=== PATIENT | male | born 1960 | race Caucasian/White ===

== ENCOUNTER 2024-11-05 08:01 | Inpatient (IN) ==
[2024-11-05 08:59] LABS: Rapid Strep Molecular Negative (Negative)
[2024-11-05] MEDS: Lactated Ringers 1000 ml BAG IV.FLUID IV ONE (09:15)
[2024-11-05 09:28] LABS: Hematocrit 32.1 % (38-53); Hemoglobin 11.2 g/dL (13.2-16.3); Mean Corpuscular Hemoglobin 32.5 pg (27-33); Mean Corpuscular Volume 92.7 fL (80-97); Mean Platelet Volume 7.1 fL (7.5-11.2); Platelet Count 120 10^3/uL (150-450); Red Blood Count 3.46 10^6/uL (4.06-5.63); Red Cell Distribution Width 11.8 % (12-17); White Blood Count 0.1 10^3/uL (3.6-10.2)
[2024-11-05 10:04] LABS: ABS Lymphocytes 0.1 10^3/uL (1.0-4.8); Eosinophil % 2.2 %; Lymphocyte % 86.7 %
[2024-11-05 10:18] LABS: Albumin 3.2 g/dL (3.5-5.7); Albumin/Globulin Ratio 1.2 (1-3); C Reactive Protein 234.24 mg/L (<8.01); Calcium 7.9 mg/dL (8.6-10.3); Creatinine, Serum 0.78 mg/dL (0.67-1.17); Globulin 2.6 g/dL (2-4); Potassium 4.1 mmol/L (3.5-5.0); Total Bilirubin 2.5 mg/dL (0.2-1.0); Total Protein 5.8 g/dL (6.4-8.9); eGFR CKD-EPI 100.2 (>60)
[2024-11-05] MEDS: Lactated Ringers 1000 ml BAG 1,000 ML IV ONE (11:04)
[2024-11-05] MEDS: Piperacillin/Tazobac 3.375 BAG 3.375 GM/100 ML BAG IV ONE (11:04)
[2024-11-05 11:23] LABS: Urine Appearance Turbid; Urine Bilirubin 2+ (Negative); Urine Blood Negative (Negative); Urine Color Dark-Yellow; Urine Glucose Negative (Negative); Urine Ketones Negative (Negative); Urine Nitrite Negative (Negative); Urine Protein 2+ (>=100 mg/dL) (Negative); Urine Specific Gravity 1.025 (1.002-1.030); Urine Urobilinogen 2+ (Negative); Urine pH 6.5 (5.0-8.0)
[2024-11-05 11:26] LABS: Activated Partial Thrombo Time 45.6 seconds (26.0-38.0); INR 1.39 (0.85-1.14)
[2024-11-05] MEDS: Vancomycin 1,000 MG in NS 0.9% 250 ml 250 ML IVPB ONE (11:40)
[2024-11-05 11:43] LABS: Urine Bacteria Absent /HPF (Absent); Urine Red Blood Cell Trace(0-2/hpf) /HPF (0-Trace); Urine Squamous Epithelial Cell Present /HPF (Absent); Urine White Blood Cell 1+(6-10/hpf) /HPF (0-Trace)
[2024-11-05 12:51] LABS: Folate 9.84 ng/mL (5.90-24.80)
[2024-11-05] MEDS: Hydrocortisone INJ 100 MG/2ML 2 ML VIAL IV SCH (14:27)
[2024-11-05] MEDS: NS 0.9% 1000 ml BAG 1,000 ML IV SCH (14:30)
[2024-11-05] MEDS ORDERED: FILGRASTIM 480 MCG/0.8 ML SYRINGE (NF) SUBCUT ONE (14:30)
[2024-11-05 15:57] LABS: High Sensitivity Troponin 1 Hr 23 pg/mL (<20)
[2024-11-05 15:59] LABS: Uric Acid 1.7 mg/dL (4.4-7.6)
[2024-11-05] MEDS: Cefepime 2 GM in Dextrose 2 GM/50 ML BAG IV SCH (16:08)
[2024-11-05] MEDS: Sulfamethox/Trimethoprim DS TAB 800/160 mg PO SCH (16:09)
[2024-11-05] MEDS: Enoxaparin 80 MG/0.8 ML SYR SUBCUT SCH (21:45)
[2024-11-06 06:55] LABS: Albumin 2.6 g/dL (3.5-5.7); Albumin/Globulin Ratio 1.2 (1-3); Calcium 6.8 mg/dL (8.6-10.3); Creatinine, Serum 1.02 mg/dL (0.67-1.17); Globulin 2.2 g/dL (2-4); Potassium 4.5 mmol/L (3.5-5.0); Total Bilirubin 1.8 mg/dL (0.2-1.0); Total Protein 4.8 g/dL (6.4-8.9); eGFR CKD-EPI 82.6 (>60)
[2024-11-06 07:16] LABS: ABS Lymphocytes 0.1 10^3/uL (1.0-4.8); Eosinophil % 1.2 %; Hematocrit 29.8 % (38-53); Hemoglobin 10.7 g/dL (13.2-16.3); Lymphocyte % 78.9 %; Mean Corpuscular Hemoglobin 33.5 pg (27-33); Mean Corpuscular Hgb Conc 35.9 g/dL (31-36); Mean Corpuscular Volume 93.3 fL (80-97); Mean Platelet Volume 7.9 fL (7.5-11.2); Nucleated Red Blood Cells % 0.7 %/100WBC (0.0-0.8); Platelet Count 75 10^3/uL (150-450); Red Blood Count 3.19 10^6/uL (4.06-5.63); Red Cell Distribution Width 11.7 % (12-17); White Blood Count 0.1 10^3/uL (3.6-10.2)
[2024-11-06] MEDS: CMCS:Estradiol 1 mg TAB (NF) PO SCH (09:47)
[2024-11-06] MEDS: Benzocaine/Menthol LOZ PO PRN (12:05)
[2024-11-07] MEDS: Saline NASAL SPRAY 0.65% BTL BOTH NARES PRN (05:23)
[2024-11-07 08:40] LABS: Hematocrit 28.5 % (38-53); Hemoglobin 9.9 g/dL (13.2-16.3); Mean Corpuscular Hemoglobin 32.7 pg (27-33); Mean Corpuscular Hgb Conc 34.8 g/dL (31-36); Mean Corpuscular Volume 93.8 fL (80-97); Mean Platelet Volume 8.7 fL (7.5-11.2); Platelet Count 76 10^3/uL (150-450); Red Blood Count 3.04 10^6/uL (4.06-5.63); White Blood Count 0.1 10^3/uL (3.6-10.2)
[2024-11-07 08:41] LABS: ABS Lymphocytes 0.1 10^3/uL (1.0-4.8); ABS Nucleated RBC 0.01 10^3/ul; Eosinophil % 4.2 %; Lymphocyte % 76.2 %; Nucleated Red Blood Cells % 5.5 %/100WBC (0.0-0.8); Tear Drop Cells 3+
[2024-11-07 09:10] LABS: C Reactive Protein 190.05 mg/L (<8.01); Calcium 6.5 mg/dL (8.6-10.3); Creatinine, Serum 1.07 mg/dL (0.67-1.17); Potassium 3.5 mmol/L (3.5-5.0)
[2024-11-07] MEDS: Lactated Ringers 1000 ml BAG 1,000 ML IV SCH (09:30)
[2024-11-07 14:08] LABS: Cytomegalovirus IgG Antibody Negative (Negative)
[2024-11-07] MEDS: Iohexol 350 (CONTRAST) 500 ML MDV IV ONE (14:11)
[2024-11-07] MEDS: Magic MouthWash2-BEN/MAAL/LIDO/NYST 240 ML BTL (alt formulation) SWISH SPIT SCH (22:48)
[2024-11-08 06:13] LABS: ABS Lymphocytes 0.2 10^3/uL (1.0-4.8); ABS Monocytes 0.1 10^3/uL (0.0-1.1); ABS Nucleated RBC 0.01 10^3/ul; Eosinophil % 0.5 %; Hematocrit 34.4 % (38-53); Hemoglobin 12.1 g/dL (13.2-16.3); Lymphocyte % 69.6 %; Mean Corpuscular Hgb Conc 35.2 g/dL (31-36); Mean Corpuscular Volume 93.9 fL (80-97); Mean Platelet Volume 9.1 fL (7.5-11.2); Nucleated Red Blood Cells % 3.1 %/100WBC (0.0-0.8); Platelet Count 100 10^3/uL (150-450); Red Blood Count 3.66 10^6/uL (4.06-5.63); Red Cell Distribution Width 12.1 % (12-17); White Blood Count 0.3 10^3/uL (3.6-10.2)
[2024-11-08 06:14] LABS: Albumin 2.4 g/dL (3.5-5.7); Calcium 6.8 mg/dL (8.6-10.3); Creatinine, Serum 0.96 mg/dL (0.67-1.17); Globulin 2.5 g/dL (2-4); Magnesium 2.3 mg/dL (1.9-2.7); Potassium 3.9 mmol/L (3.5-5.0); Total Protein 4.9 g/dL (6.4-8.9); eGFR CKD-EPI 88.8 (>60)
[2024-11-08] MEDS: NS 0.9% 1000 ml BAG 400 ML IV ONE (08:40)
[2024-11-08] MEDS: Fluticasone NASAL SPRAY 50MCG 16 gm SPRAY BTL BOTH NARES SCH (10:39)
[2024-11-08] MEDS ORDERED: Ondansetron ODT 4 mg TAB 4 MG TAB PO PRN (12:57)
[2024-11-08] MEDS ORDERED: Saline NASAL DROPS 0.65% BTL BOTH NARES PRN (14:54)
[2024-11-08] MEDS ORDERED: SODIUM CHLORIDE 0.65% INTRANASAL SCH (15:00)
[2024-11-08] MEDS ORDERED: [UNRECOGNIZED DRUG - OTHER] INTRANASAL SCH (15:00)
[2024-11-08] MEDS: Polyethylene Glycol 3350 17 GM PACKET PO SCH (15:29)
[2024-11-08] MEDS: [UNRECOGNIZED DRUG - OTHER] BOTH NARES PRN (15:39)
[2024-11-08] MEDS: Iohexol 350 (CONTRAST) 500 ML MDV IV ONE (15:58)
[2024-11-08 16:01] LABS: Albumin 2.4 g/dL (3.5-5.7); Calcium 6.8 mg/dL (8.6-10.3); Creatinine, Serum 0.91 mg/dL (0.67-1.17); Globulin 2.4 g/dL (2-4); Potassium 3.5 mmol/L (3.5-5.0); Total Bilirubin 1.1 mg/dL (0.2-1.0); Total Protein 4.8 g/dL (6.4-8.9); eGFR CKD-EPI 94.7 (>60)
[2024-11-08 18:59] LABS: Urine Osmo 533 mOsm/kg (150-1150)
[2024-11-08 19:05] LABS: Osmolality Serum 262 mOsm/kg (275-295)
[2024-11-08 19:13] LABS: Hematocrit 34.6 % (38-53); Hemoglobin 12.1 g/dL (13.2-16.3); Mean Corpuscular Hemoglobin 32.5 pg (27-33); Mean Corpuscular Hgb Conc 35.1 g/dL (31-36); Mean Corpuscular Volume 92.4 fL (80-97); Platelet Count 111 10^3/uL (150-450); Red Blood Count 3.74 10^6/uL (4.06-5.63); Red Cell Distribution Width 12.5 % (12-17); White Blood Count 0.3 10^3/uL (3.6-10.2)
[2024-11-08 19:45] LABS: ABS Lymphocytes 0.2 10^3/uL (1.0-4.8); ABS Monocytes 0.1 10^3/uL (0.0-1.1); Eosinophil % 0.3 %; Nucleated Red Blood Cells % 1.6 %/100WBC (0.0-0.8)
[2024-11-09 07:01] LABS: Albumin 2.4 g/dL (3.5-5.7); Calcium 6.7 mg/dL (8.6-10.3); Creatinine, Serum 0.92 mg/dL (0.67-1.17); Globulin 2.5 g/dL (2-4); Magnesium 2.3 mg/dL (1.9-2.7); Potassium 3.7 mmol/L (3.5-5.0); Total Bilirubin 1.3 mg/dL (0.2-1.0); Total Protein 4.9 g/dL (6.4-8.9); eGFR CKD-EPI 93.5 (>60)
[2024-11-09 08:16] LABS: ABS Lymphocytes 0.2 10^3/uL (1.0-4.8); ABS Monocytes 0.2 10^3/uL (0.0-1.1); Eosinophil % 0.2 %; Hematocrit 35.2 % (38-53); Hemoglobin 12.4 g/dL (13.2-16.3); Lymphocyte % 49.5 %; Mean Corpuscular Hemoglobin 32.4 pg (27-33); Mean Corpuscular Hgb Conc 35.2 g/dL (31-36); Mean Corpuscular Volume 92.1 fL (80-97); Mean Platelet Volume 9.1 fL (7.5-11.2); Platelet Count 135 10^3/uL (150-450); Red Blood Count 3.82 10^6/uL (4.06-5.63); Red Cell Distribution Width 12.3 % (12-17); White Blood Count 0.4 10^3/uL (3.6-10.2)
[2024-11-09] MEDS: NS 0.9% 1000 ml BAG 1,000 ML IV SCH (09:11)
[2024-11-09 11:20] LABS: Urine Osmo 482 mOsm/kg (150-1150)
[2024-11-09 11:28] LABS: Immunoglobulin G 610 mg/dL (767 - 1590); Immunoglobulin M 47 mg/dL (37 - 286)
[2024-11-09 12:54] LABS: EBV Capsid Ag IgG Ab Negative (Negative); EBV Capsid Ag IgM Ab Negative (Negative); Epstein-Barr Nuclear Antigen Negative (Negative)
[2024-11-09 13:43] LABS: Complement C3 97 mg/dL (75 - 175)
[2024-11-09] MEDS: Fluconazole 200 MG IVPREMIX 200 MG/100 ML BAG IVPB ONE (15:09)
[2024-11-09] MEDS: Anidulafungin 200 MG in NS 0.9% 250 ml 200 ML IVPB ONE (16:17)
[2024-11-09 17:16] LABS: HIV 4th Generation Nonreactive (Nonreactive)
[2024-11-09] MEDS: Acetaminophen IV 1 GM/100ML 1,000 MG/100 ML BAG IV SCH (21:31)
[2024-11-10 06:13] LABS: Albumin 2.4 g/dL (3.5-5.7); Albumin/Globulin Ratio 0.9 (1-3); Calcium 6.8 mg/dL (8.6-10.3); Creatinine, Serum 0.86 mg/dL (0.67-1.17); Globulin 2.6 g/dL (2-4); Magnesium 2.2 mg/dL (1.9-2.7); Potassium 3.8 mmol/L (3.5-5.0); Total Bilirubin 1.1 mg/dL (0.2-1.0); eGFR CKD-EPI 97.3 (>60)
[2024-11-10 07:18] LABS: ABS Lymphocytes 0.7 10^3/uL (1.0-4.8); ABS Monocytes 0.6 10^3/uL (0.0-1.1); ABS Neutrophils 0.2 10^3/uL (1.5-7.6); ABS Nucleated RBC 0.01 10^3/ul; Eosinophil % 0.1 %; Hematocrit 36.1 % (38-53); Hemoglobin 12.7 g/dL (13.2-16.3); Lymphocyte % 48.9 %; Mean Corpuscular Hemoglobin 32.7 pg (27-33); Mean Corpuscular Hgb Conc 35.2 g/dL (31-36); Mean Corpuscular Volume 92.9 fL (80-97); Mean Platelet Volume 9.5 fL (7.5-11.2); Nucleated Red Blood Cells % 0.6 %/100WBC (0.0-0.8); Platelet Count 198 10^3/uL (150-450); Red Blood Count 3.88 10^6/uL (4.06-5.63); Red Cell Distribution Width 12.6 % (12-17); White Blood Count 1.5 10^3/uL (3.6-10.2)
[2024-11-10] MEDS: Anidulafungin 100 MG in NS 0.9% 100 ml BAG 100 ML IVPB SCH (10:27)
[2024-11-10] MEDS: Fluconazole 400 MG IVPREMIX 400 MG/200 ML BAG IVPB SCH (11:30)
[2024-11-10 13:35] LABS: Chlamydia trachomatis NAA Negative (Negative); Neisseria gonorrhoeae (GC) NAA Negative (Negative)
[2024-11-10] MEDS: Lidocaine/Epineph/Tetraca GEL 3 ML GEL IN SYR TOPICAL ONE (14:10)
[2024-11-10] MEDS: Hydrocortisone INJ 100 MG/2ML 2 ML VIAL IV SCH (14:43)
[2024-11-10] MEDS: NS 0.9% 1000 ml BAG 1,000 ML IV SCH (15:47)
[2024-11-11] MEDS: Hemorrhoidal OINT 1 TUBE PR PRN (02:02)
[2024-11-11 06:36] LABS: Calcium 6.4 mg/dL (8.6-10.3); Creatinine, Serum 0.79 mg/dL (0.67-1.17); eGFR CKD-EPI 99.8 (>60)
[2024-11-11] MEDS: CALCIUM GLUCONATE 1GM/50ML NS 1 GM/50 ML BAG IV SCH (08:06)
[2024-11-11] MEDS: Sulfamethox/Trimethoprim DS TAB 800/160 mg PO SCH (08:08)
[2024-11-11 08:41] LABS: ABS Lymphocytes 0.7 10^3/uL (1.0-4.8); ABS Monocytes 1.2 10^3/uL (0.0-1.1); ABS Neutrophils 1.5 10^3/uL (1.5-7.6); Hematocrit 32.3 % (38-53); Hemoglobin 11.4 g/dL (13.2-16.3); Lymphocyte % 21.4 %; Mean Corpuscular Hemoglobin 32.8 pg (27-33); Mean Corpuscular Hgb Conc 35.3 g/dL (31-36); Mean Corpuscular Volume 92.8 fL (80-97); Mean Platelet Volume 9.4 fL (7.5-11.2); Nucleated Red Blood Cells % 0.1 %/100WBC (0.0-0.8); Platelet Count 273 10^3/uL (150-450); RBC Morphology Normal (Normal); Red Blood Count 3.48 10^6/uL (4.06-5.63); Red Cell Distribution Width 12.5 % (12-17); White Blood Count 3.4 10^3/uL (3.6-10.2)
[2024-11-11 19:44] LABS: HIV-1 RNA (PCR) Undetected copies/mL (Undetected)
[2024-11-12] MEDS ORDERED: Sodium Chloride(INHALANT)0.9% 5 ML NEB.SOLN INH PRN (02:38)
[2024-11-12 06:11] LABS: Hematocrit 32.2 % (38-53); Mean Corpuscular Hemoglobin 31.8 pg (27-33); Mean Corpuscular Hgb Conc 34.3 g/dL (31-36); Mean Corpuscular Volume 92.6 fL (80-97); Mean Platelet Volume 8.6 fL (7.5-11.2); Platelet Count 357 10^3/uL (150-450); Red Blood Count 3.47 10^6/uL (4.06-5.63); Red Cell Distribution Width 12.5 % (12-17); White Blood Count 12.5 10^3/uL (3.6-10.2)
[2024-11-12 06:31] LABS: ABS Basophils 0.1 10^3/uL (0.0-0.1); ABS Lymphocytes 1.9 10^3/uL (1.0-4.8); ABS Monocytes 2.3 10^3/uL (0.0-1.1); ABS Neutrophils 8.2 10^3/uL (1.5-7.6); ABS Nucleated RBC 0.02 10^3/ul; Lymphocyte % 15.5 %; Nucleated Red Blood Cells % 0.1 %/100WBC (0.0-0.8)
[2024-11-12 06:32] LABS: RBC Morphology Normal (Normal); Toxic Granulation 1+
[2024-11-12 06:38] LABS: Albumin 2.3 g/dL (3.5-5.7); Calcium 6.8 mg/dL (8.6-10.3); Creatinine, Serum 0.8 mg/dL (0.67-1.17); Globulin 2.4 g/dL (2-4); Magnesium 1.8 mg/dL (1.9-2.7); Potassium 3.7 mmol/L (3.5-5.0); Total Bilirubin 0.7 mg/dL (0.2-1.0); Total Protein 4.7 g/dL (6.4-8.9); eGFR CKD-EPI 99.4 (>60)
[2024-11-12] MEDS: Magnesium Sulfate 2 gm BAG 2 GM/50 ML BAG IVPB ONE (09:03)
[2024-11-12] MEDS: Chlorhexidine MOUTHWASH 0.12% 15 ML UDC SWISH SPIT SCH (10:22)
[2024-11-12] MEDS: Sodium Chloride(INHALANT)0.9% 5 ML NEB.SOLN INH ONE (10:52)
[2024-11-12 11:00] VITALS: BP 138/81
[2024-11-12] MEDS ORDERED: Sodium Chloride(INHALANT)0.9% 5 ML NEB.SOLN INH SCH (21:00)
[2024-11-13 12:43] LABS: HIV-1 RNA Undetected (Undetected); HIV-2 RNA Undetected (Undetected)
[2024-11-14 18:34] LABS: CMV DNA DETECT/QT, P Undetected IU/mL (Undetected)
[2024-11-14 20:01] LABS: Adenovirus F40/41 Negative (Negative); Astrovirus Negative (Negative); Cryptosporidium species Negative (Negative); Cyclospora cayetanensis Negative (Negative); Entamoeba histolytica Negative (Negative); Enteroaggregative E.coli(EAEC) Negative (Negative); Enteropathogenic Ecoli(EPEC) Negative (Negative); Enterotoxigenic Ecoli(ETEC) Negative (Negative); Norovirus GI/GII Negative (Negative); Plesiomonas shigelloides Negative (Negative); Salmonella species Negative (Negative); Sapovirus Negative (Negative); Shiga toxin producing E. coli Negative (Negative); Shigella/Enteroinvasive E.coli Negative (Negative); Specimen Source STOOL; Vibrio cholerae Negative (Negative); Yersinia species Negative (Negative)
[2024-11-16 23:34] LABS: HSV 1,PCR Negative (Negative); HSV 2, PCR Negative (Negative); Specimen Source ORAL
[2024-11-16 23:34] LABS: HSV 1,PCR Negative (Negative); HSV 2, PCR Negative (Negative); Specimen Source ANAL
== END 2024-11-12 14:06 | disposition left against medical advice (07) | DRG 872 ==
LOC: ED 08:01 → SUATTDRO 12:24 → EDHOLD 12:24 → MEDTELE 13:20
PROVIDERS: ADMIT Internal Medicine; ATTEND Internal Medicine